=== PATIENT | female | born 1955 | race Caucasian/White ===

== ENCOUNTER → 2016-12-01 | Outpatient (CLI) | payer MEDICARE, OTHER ==
--- NOTE | 2016-12-01 15:45 | BD ---
EXAMINATION TYPE: MG DEXA axial skeleton. DATE OF EXAM: 12/01/2016 1:28 PM COMPARISON: NONE CLINICAL HISTORY: Z13.820 SCREENING Height: 64.5 Weight: 193 FRAX RISK QUESTIONS: Alcohol (3 or more units per day): NO Family History (Parent hip fracture): NO Glucocorticoids (More than 3mos): YES (Ex: prednisone, prednisolone, methylprednisolone, dexamethasone, and hydrocortisone). History of Fracture in Adulthood: NO Secondary Osteoporosis: NO 1. Type 1 Diabetes: NO 2. Hyperthyroidism: NO 3. Menopause before 45: NO 4. Malnutrition: NO 5. Chronic liver disease: NO Rheumatoid Arthritis: NO Current Tobacco Use: YES RISK FACTORS HISTORY OF: History of Wrist Fracture: RT FOREARM When: AGE 7 Family History of Osteoporosis: NO Smoke tobacco: YES, 1 PAC DAILY Drink Alcohol: NO Active: NOT REALLY Diet low in dairy products/other sources of calcium: NO Postmenopausal woman: YES AT AGE 53 Lost more than 2 inches in height since high school: YES Adrenal Insufficiency: NO MEDICATIONS: Prednisone or other steroids: ASTHMA INHALERS DAILY How Long: FOR YRS Additional Medications: ZOLOFT, BP MEDS Additional History: ASTHMA, HYPERTENSION, NECK SURGERY EXAM MEASUREMENTS: Bone mineral densitometry was performed using the Super System. Bone mineral density as measured about the Lumbar spine is: ----- L1-L4(G/cm2): 1.269 T Score Values are as follows: ----- L1: -0.1 ----- L2: 0.8 ----- L3: 0.6 ----- L4: 1.3 ----- L1-L4: 0.7 Bone mineral density BASELINE STUDY FOR HER Bone mineral density about the R hip (g/cm2): 1.062 Bone mineral density about the L hip (g/cm2): 1.041 T Score values are as follows: -----R Neck: -0.6 -----L Neck: -0.7 -----R Intertrochanter: 0.0 -----L Intertrochanter: 0.3 Bone mineral density FIRST BONE DENSITY TEST.....BASELINE FRAX %'S: 6.1% FOR A MAJOR OSTEOPOROTIC FX AND 0.4% FOR A HIP FX: PROBABILITY OF FX IN 10 YRS TI ME IMPRESSION: Normal (Values between +1 and -1 indicate normal bone mass FOR BOTH STUDIES) NOTE: T-SCORE=SD OF THE YOUNG ADULT MEAN.
--- NOTE | 2016-12-03 08:42 | MM ---
Reason for exam: screening (asymptomatic). Last mammogram was performed 1 year ago. History: Patient is postmenopausal. Family history of premenopausal breast cancer in aunt at age 47 and premenopausal breast cancer in cousin at age 32. Benign excisional biopsy of the left breast, 2009. Physical Findings: A clinical breast exam by your physician is recommended on an annual basis and results should be correlated with mammographic findings. MG Screening Mammo w CAD Bilateral CC and MLO view(s) were taken. Prior study comparison: November 26, 2015, bilateral MG screening mammo w CAD. May 05, 2014, bilateral MG screening mammo w CAD. There are scattered fibroglandular densities. Some subtle asymmetry inferior margin on the left breast may correspond to the site of patients reported infection. The asymmetry is new. A 6 month follow up recommended. ASSESSMENT: Probably benign, BI-RAD 3 RECOMMENDATION: Follow-up diagnostic mammogram of the left breast in 6 months.
== END | disposition home or self-care (01) ==
LOC: LABWHC1 12:49
PROVIDERS: ATTEND Family Medicine
DX: Z12.31 Encounter for screening mammogram for malignant neoplasm of breast (principal); Z13.820 Encounter for screening for osteoporosis
CPT/HCPCS: 77080; G0202

== ENCOUNTER 2017-02-16 10:28 | Inpatient (IN) | payer MEDICARE, OTHER ==
[2017-02-16] MEDS ORDERED: methylPREDNISolone SOD SUCCI 125 MG/2 ML VIAL IV STA (10:29)
[2017-02-16] MEDS ORDERED: SODIUM CHLORIDE 0.9% 1,000 ML IV STA ×2 (10:29→12:48)
[2017-02-16] MEDS ORDERED: ALBUTEROL NEBULIZED 2.5 MG/3 ML INHALATION STA (10:29)
[2017-02-16] MEDS ORDERED: IPRATROPIUM 0.5 MG/2.5 ML NEBU INHALATION STA (10:29)
--- NOTE | 2017-02-16 10:31 | ED ---
General Adult HPI - General Stated complaint: SOB Time Seen by Provider: 02/16/17 10:29 Source: RN notes reviewed, old records reviewed - History of Present Illness Initial comments: This is a 61-year-old female the ER for evaluation. Patient presented today for evaluation of cough congestion shortness of breath. Patient does from asthma, having worsening asthma exacerbation as of today. Patient shows no fever. Does have increased cough or congestion. Also complaining of chest pain neck pain and neck pain and arm - Related Data Home Medications Medication Instructions Recorded Confirmed Cyclobenzaprine [Flexeril] 10 mg PO TID PRN 11/16/14 02/16/17 HYDROcodone/APAP 5-325MG [[place] 5] 1 tab PO Q6H PRN 11/16/14 02/16/17 LORazepam [Ativan] 0.5 mg PO BID PRN 11/16/14 02/16/17 Omeprazole [PriLOSEC] 20 mg PO DAILY 11/16/14 02/16/17 Aspirin 325 mg PO DAILY 02/16/17 02/16/17 Atorvastatin Calcium [Lipitor] 20 mg PO HS 02/16/17 02/16/17 Sulfamethox-Tmp 800-160Mg [Bactrim 1 tab PO Q12HR 02/16/17 02/16/17 DS 800-160 mg] Allergies Allergy/AdvReac Type Severity Reaction Status Date / Time codeine Allergy Rapid Verified 02/16/17 11:49 Heart Rate meperidine HCl [From Demerol] Allergy Rapid Verified 02/16/17 11:49 Heart Rate morphine Allergy Rapid Verified 02/16/17 11:49 Heart Rate Review of Systems ROS Statement: Those systems with pertinent positive or pertinent negative responses have been documented in the HPI. ROS Other: All systems not noted in ROS Statement are negative. Past Medical History Past Medical History: Asthma, GERD/Reflux, Skin Disorder Additional Past Medical History / Comment(s): psoriasis History of Any Multi-Drug Resistant Organisms: None Reported Past Surgical History: Appendectomy, Tonsillectomy, Tubal Ligation Additional Past Surgical History / Comment(s): cervical fusion with plate and screws Past Anesthesia/Blood Transfusion Reactions: Motion Sickness Smoking Status: Current every day smoker Past Alcohol Use History: None Reported Past Drug Use History: None Reported General Exam General appearance: alert, in no apparent distress Head exam: Present: atraumatic, normocephalic, normal inspection Eye exam: Present: normal appearance, PERRL, EOMI. Absent: scleral icterus, conjunctival injection, periorbital swelling ENT exam: Present: normal exam, mucous membranes moist Neck exam: Present: normal inspection. Absent: tenderness, meningismus, lymphadenopathy Respiratory exam: Present: normal lung sounds bilaterally, wheezes, accessory muscle use, decreased breath sounds, prolonged expiratory. Absent: respiratory distress, rales, rhonchi, stridor Cardiovascular Exam: Present: regular rate, normal rhythm, normal heart sounds. Absent: systolic murmur, diastolic murmur, rubs, gallop, clicks GI/Abdominal exam: Present: soft, normal bowel sounds. Absent: distended, tenderness, guarding, rebound, rigid Extremities exam: Present: normal inspection, full ROM, normal capillary refill. Absent: tenderness, pedal edema, joint swelling, calf tenderness Back exam: Present: normal inspection Neurological exam: Present: alert, oriented X3, CN II-XII intact Psychiatric exam: Present: normal affect, normal mood Skin exam: Present: warm, dry, intact, normal color. Absent: rash Course Vital Signs 02/16/17 02/16/17 02/16/17 10:30 10:45 11:00 Temperature 101.5 F H Pulse Rate 137 H 133 H 140 H Respiratory 22 22 Rate Blood Pressure 113/58 O2 Sat by Pulse 100 100 Oximetry 02/16/17 02/16/17 11:25 11:39 Temperature Pulse Rate 132 H 128 H Respiratory Rate Blood Pressure O2 Sat by Pulse Oximetry - Reevaluation(s) Reevaluation #1: 02/16/17 12:49 Patient has minimal improvement with breathing treatment and synthetic therapy, patient remained short of breath EKG Findings - EKG Comments: EKG Findings:: EKG shows sinus tachycardia at 139, MN 120, QRS 80, QTC 535 Medical Decision Making - Medical Decision Making 61 female the ER for evaluation of severe shortness of breath cough and congestion, positive COPD exacerbation with fever. Patient will be treated for possible pneumonia although no pneumonia is seen on x-ray at this time. Patient will be admitted for IV antibiotics and breathing treatments on the clock - Lab Data Result diagrams: 02/16/17 10:45 02/16/17 10:45 Lab Results 02/16/17 02/16/17 02/16/17 Range/Units 10:45 10:45 10:45 WBC 8.2 (3.8-10.6) k/uL RBC 5.59 H (3.80-5.40) m/uL Hgb 15.9 (11.4-16.0) gm/dL Hct 49.5 H (34.0-46.0) % MCV 88.7 (80.0-100.0) fL MCH 28.5 (25.0-35.0) pg MCHC 32.1 (31.0-37.0) g/dL RDW 13.8 (11.5-15.5) % Plt Count 244 (150-450) k/uL Neutrophils % 91 % Lymphocytes % 7 % Monocytes % 1 % Eosinophils % 1 % Basophils % 0 % Neutrophils # 7.5 (1.3-7.7) k/uL Lymphocytes # 0.6 L (1.0-4.8) k/uL Monocytes # 0.1 (0-1.0) k/uL Eosinophils # 0.1 (0-0.7) k/uL Basophils # 0.0 (0-0.2) k/uL PT (9.0-12.0) sec INR (<1.1) APTT (22.0-30.0) sec Sodium 140 (137-145) mmol/L Potassium 3.4 L (3.5-5.1) mmol/L Chloride 106 (98-107) mmol/L Carbon Dioxide 20 L (22-30) mmol/L Anion Gap 14 mmol/L BUN 9 (7-17) mg/dL Creatinine 0.93 (0.52-1.04) mg/dL Est GFR (MDRD) Af Amer >60 (>60 ml/min/1.73 sqM) Est GFR (MDRD) Non-Af >60 (>60 ml/min/1.73 sqM) Glucose 107 H (74-99) mg/dL Calcium 9.4 (8.4-10.2) mg/dL Total Bilirubin 0.6 (0.2-1.3) mg/dL AST 34 (14-36) U/L ALT 33 (9-52) U/L Alkaline Phosphatase 97 (38-126) U/L Total Creatine Kinase 62 (30-135) U/L CK-MB (CK-2) 1.2 (0.0-2.4) ng/mL CK-MB (CK-2) Rel Index 1.9 Troponin I <0.012 (0.000-0.034) ng/mL NT-Pro-B Natriuret Pep pg/mL Total Protein 7.5 (6.3-8.2) g/dL Albumin 4.0 (3.5-5.0) g/dL 02/16/17 02/16/17 Range/Units 10:45 10:45 WBC (3.8-10.6) k/uL RBC (3.80-5.40) m/uL Hgb (11.4-16.0) gm/dL Hct (34.0-46.0) % MCV (80.0-100.0) fL MCH (25.0-35.0) pg MCHC (31.0-37.0) g/dL RDW (11.5-15.5) % Plt Count (150-450) k/uL Neutrophils % % Lymphocytes % % Monocytes % % Eosinophils % % Basophils % % Neutrophils # (1.3-7.7) k/uL Lymphocytes # (1.0-4.8) k/uL Monocytes # (0-1.0) k/uL Eosinophils # (0-0.7) k/uL Basophils # (0-0.2) k/uL PT 10.9 (9.0-12.0) sec INR 1.1 (<1.1) APTT 24.3 (22.0-30.0) sec Sodium (137-145) mmol/L Potassium (3.5-5.1) mmol/L Chloride (98-107) mmol/L Carbon Dioxide (22-30) mmol/L Anion Gap mmol/L BUN (7-17) mg/dL Creatinine (0.52-1.04) mg/dL Est GFR (MDRD) Af Amer (>60 ml/min/1.73 sqM) Est GFR (MDRD) Non-Af (>60 ml/min/1.73 sqM) Glucose (74-99) mg/dL Calcium (8.4-10.2) mg/dL Total Bilirubin (0.2-1.3) mg/dL AST (14-36) U/L ALT (9-52) U/L Alkaline Phosphatase (38-126) U/L Total Creatine Kinase (30-135) U/L CK-MB (CK-2) (0.0-2.4) ng/mL CK-MB (CK-2) Rel Index Troponin I (0.000-0.034) ng/mL NT-Pro-B Natriuret Pep 171 pg/mL Total Protein (6.3-8.2) g/dL Albumin (3.5-5.0) g/dL - Radiology Data Radiology results: report reviewed (Chest x-ray is negative for acute disease), image reviewed Critical Care Time Critical Care Time: Yes Total Critical Care Time: 31 Disposition Clinical Impression: Acute exacerbation of chronic obstructive airways disease, Community acquired pneumonia, Hypoxia, Sepsis Disposition: ADMITTED IP TO THIS HOSP Condition: Fair Referrals: Zacarias Carmen MD [Primary Care Provider] - 1-2 days
[2017-02-16] MEDS ORDERED: HYDROmorphone 1 MG/ML 1 ML SYRINGE IVP STA (10:51)
[2017-02-16] MEDS ORDERED: IBUPROFEN 800 MG TAB PO STA (10:51)
[2017-02-16] MEDS ORDERED: ACETAMINOPHEN TAB 500 MG TAB PO STA (10:51)
[2017-02-16] MEDS ORDERED: AZITHROMYCIN 500 MG in SODIUM CHLORIDE 0.9% 250 ML IVPB STA (10:53)
--- NOTE | 2017-02-16 11:01 | XR ---
EXAMINATION TYPE: XR chest 1V portable DATE OF EXAM: 02/16/2017 10:58 AM Comparison: None Clinical History: 61-year-old female SOB Findings: The cardiomediastinal silhouette, aorta, and pulmonary vasculature are within normal limits. Hazy de nsity at the left base suspected to relate to overlying soft tissue density. Note definite consolidat ion or pleural effusion. Impression: Underpenetration of the left base limits the evaluation. Hazy density here is suspected to relate to overlying soft tissue. No definite acute process.
[2017-02-16 11:03] LABS: Basophils % (A) 0 %; CH 28.6; CHCM 32.4; Eosinophils # (A) 0.1 k/uL (0-0.7); Eosinophils % (A) 1 %; HCT 49.5 % (34.0-46.0); HDW 2.57; HGB 15.9 gm/dL (11.4-16.0); Luc # (Auto) 0.03; Luc % (Auto) 0; Lymphocytes # (A) 0.6 k/uL (1.0-4.8); Lymphocytes % (A) 7 %; MCH 28.5 pg (25.0-35.0); MCHC 32.1 g/dL (31.0-37.0); MCV 88.7 fL (80.0-100.0); Mean Platelet Volume 7.2; Monocytes # (A) 0.1 k/uL (0-1.0); Monocytes % (A) 1 %; Neutrophils # (A) 7.5 k/uL (1.3-7.7); Neutrophils % (A) 91 %; RBC 5.59 m/uL (3.80-5.40); RDW 13.8 % (11.5-15.5); WBC 8.2 k/uL (3.8-10.6); WBC (Perox) 7.92
[2017-02-16 11:10] LABS: Creatine Kinase 62 U/L (30-135)
[2017-02-16 11:11] LABS: INR 1.1 (<1.1); Partial Thromboplastin Time 24.3 sec (22.0-30.0); Prothrombin Time 10.9 sec (9.0-12.0)
[2017-02-16 11:12] LABS: ALT 33 U/L (9-52); AST 34 U/L (14-36); Alkaline Phosphatase 97 U/L (38-126); Anion Gap 14 mmol/L; Blood Urea Nitrogen 9 mg/dL (7-17); Calcium 9.4 mg/dL (8.4-10.2); Carbon Dioxide 20 mmol/L (22-30); Chloride 106 mmol/L (98-107); Glucose 107 mg/dL (74-99); Non-African American GFR(MDRD) >60 (>60 ml/min/1.73 sqM); Potassium 3.4 mmol/L (3.5-5.1); Sodium 140 mmol/L (137-145); Total Bilirubin 0.6 mg/dL (0.2-1.3); Total Protein 7.5 g/dL (6.3-8.2)
[2017-02-16] MEDS: SODIUM CHLORIDE 0.9% 1,000 ML IV STA ×2 (11:19→17:26)
[2017-02-16 11:23] LABS: Creatine Kinase MB 1.2 ng/mL (0.0-2.4); Troponin I <0.012 ng/mL (0.000-0.034)
[2017-02-16] MEDS ORDERED: POTASSIUM BICARB-CITRIC ACID 25 MEQ TABLET.EFF PO STA (12:39)
[2017-02-16] MEDS ORDERED: PNEUMONIA PROTOCOL UTILIZED 1 EACH MISC PO PRN (12:46)
[2017-02-16] MEDS ORDERED: SODIUM CHLORIDE 0.9% 1,000 ML IV ONE ×2 (14:05→14:07)
[2017-02-16] MEDS: IPRATROPIUM-ALBUTEROL 3 ML NEB INHALATION SCH ×2 (15:00→19:42)
[2017-02-16] MEDS ORDERED: LORazepam 0.5 MG TAB PO PRN (15:56)
[2017-02-16] MEDS: PANTOPRAZOLE 40 MG TABLET PO SCH ×2 (17:27→17:28)
[2017-02-16] MEDS: SODIUM CHLORIDE 0.9% 1,000 ML IV SCH ×2 (17:27→21:05)
[2017-02-16] MEDS: CYCLOBENZAPRINE 10 MG TAB PO SCH ×2 (17:27→21:05)
[2017-02-16] MEDS: HYDROcodone/APAP 5-325MG 1 EACH TAB PO PRN (17:30)
[2017-02-16] MEDS: SYMBICORT 160-4.5 MCG INHALER INHALATION SCH (19:42)
[2017-02-16] MEDS: NICOTINE 14MG/24HR PATCH TRANSDERM SCH (21:04)
[2017-02-16] MEDS: methylPREDNISolone SOD SUCCI 125 MG/2 ML VIAL IV SCH ×2 (21:04→23:13)
[2017-02-16] MEDS: ATORVASTATIN 20 MG TAB PO SCH (21:05)
[2017-02-16 22:04] LABS: Appearance,Urine Clear (Clear); Bilirubin,Urine Negative (Negative); Glucose,Urine (UA) 4+ (Negative); Ketones,Urine Negative (Negative); Leukocyte Esterase,Urine Negative (Negative); Nitrite,Urine Negative (Negative); Protein,Urine Negative (Negative); Specific Gravity,Urine 1.004 (1.001-1.035); UA Billing (MACRO vs. MICRO) CHEM; Urobilinogen,Urine <2.0 mg/dL (<2.0)
[2017-02-17] MEDS: NITROGLYCERIN SL TABS 0.4 MG TAB SUBLINGUAL PRN ×2 (01:13→01:20)
[2017-02-17] MEDS: MORPHINE SULFATE 2 MG/ML SYRINGE IVP PRN ×2 (01:28→06:30)
[2017-02-17 06:13] LABS: Glucose,Whole Blood 151 mg/dL (75-99)
[2017-02-17] MEDS: SODIUM CHLORIDE 0.9% 1,000 ML IV SCH ×2 (06:34→17:11)
[2017-02-17] MEDS: methylPREDNISolone SOD SUCCI 125 MG/2 ML VIAL IV SCH ×4 (06:35→23:29)
[2017-02-17] MEDS: INSULIN LISPRO (humaLOG) 300 UNIT/3 ML VIAL SQ SCH ×3 (06:35→17:07)
[2017-02-17] MEDS: PANTOPRAZOLE 40 MG TABLET PO SCH (06:37)
[2017-02-17 07:02] LABS: Anion Gap 9 mmol/L; Blood Urea Nitrogen 11 mg/dL (7-17); Calcium 9.2 mg/dL (8.4-10.2); Carbon Dioxide 21 mmol/L (22-30); Chloride 111 mmol/L (98-107); Glucose 145 mg/dL (74-99); Non-African American GFR(MDRD) >60 (>60 ml/min/1.73 sqM); Potassium 4.5 mmol/L (3.5-5.1); Sodium 141 mmol/L (137-145)
[2017-02-17] MEDS ORDERED: INSULIN LISPRO (humaLOG) 300 UNIT/3 ML VIAL SQ SCH (07:30)
[2017-02-17 07:46] LABS: Basophils % (A) 0 %; CH 28.5; Eosinophils % (A) 0 %; HCT 38.6 % (34.0-46.0); HDW 2.68; Luc # (Auto) 0.04; Luc % (Auto) 0; Lymphocytes # (A) 0.7 k/uL (1.0-4.8); Lymphocytes % (A) 4 %; MCH 28.6 pg (25.0-35.0); MCHC 32.9 g/dL (31.0-37.0); MCV 86.9 fL (80.0-100.0); Mean Platelet Volume 7.8; Monocytes # (A) 0.3 k/uL (0-1.0); Monocytes % (A) 2 %; Neutrophils # (A) 15.6 k/uL (1.3-7.7); Neutrophils % (A) 93 %; RBC 4.44 m/uL (3.80-5.40); RDW 13.5 % (11.5-15.5); WBC 16.7 k/uL (3.8-10.6)
[2017-02-17 07:48] LABS: HGB 12.7 gm/dL (11.4-16.0)
[2017-02-17] MEDS: SYMBICORT 160-4.5 MCG INHALER INHALATION SCH ×2 (08:13→19:55)
[2017-02-17] MEDS: IPRATROPIUM-ALBUTEROL 3 ML NEB INHALATION SCH ×4 (08:13→19:55)
[2017-02-17 08:44] LABS: Hemoglobin A1C 6.4 % (4.2-6.1)
[2017-02-17] MEDS: AZITHROMYCIN 500 MG in SODIUM CHLORIDE 0.9% 250 ML IVPB SCH (09:05)
[2017-02-17] MEDS: ASPIRIN 325 MG TAB PO SCH (09:05)
[2017-02-17] MEDS: ENOXAPARIN 40 MG/0.4 ML SYRINGE SQ SCH (09:06)
[2017-02-17] MEDS: CYCLOBENZAPRINE 10 MG TAB PO SCH ×3 (09:06→21:18)
--- NOTE | 2017-02-17 09:17 | HP ---
DATE OF ADMISSION: DATE OF SERVICE: 02/16/2017 The chief complaints are shortness of breath, cough and sputum. HISTORY OF PRESENT ILLNESS: This 61-year-old woman with a past medical history of asthma, GERD, hyperlipidemia, history of pneumonia, history of skin disorder, history of DJD, cervical fusion, being followed by Dr. Zacarias Carmen in the outpatient setting is having increased shortness of breath since today. The patient had increase in cough and sputum. Patient had fevers and the patient came to [facility] and admitted for further evaluation and treatment. Temperature was elevated up to 100.3 and plasma lactic was 4.3. Pneumonia. Patient was admitted for further evaluation and treatment. There is no history of any headache, loss of consciousness or seizures. No history of chest pain, palpitations, hematochezia or melena at this time. PAST MEDICAL HISTORY: History of asthma, history of GERD, hyperlipidemia, history of pneumonia, history of back pain, DJD, history of tonsillectomy. Medications prior to admission include: 1. Bactrim DS one p.o. b.i.d. 2. Ativan 0.5 mg b.i.d. p.r.n. 3. [place] 5 mg q.6 p.r.n. 4. Flexeril 10 mg t.i.d. p.r.n. 5. Aspirin 325 mg p.o. daily. 6. Prilosec 20 mg daily. 7. Lipitor 10 mg q.h.s. Allergies are CODEINE, DEMEROL, MORPHINE. FAMILY HISTORY: History of cancer in the family. SOCIAL HISTORY: History of smoking on a daily basis. REVIEW OF SYSTEMS: ENT: No diminishing hearing or diminished vision. CARDIOVASCULAR: As mentioned earlier. RESPIRATORY: As mentioned earlier. GI: No nausea. : No dysuria. NERVOUS SYSTEM: No numbness or weakness. ALLERGY/IMMUNOLOGY: neg MUSCULOSKELETAL: As mentioned earlier. HEMATOLOGY/ONCOLOGY: No history of anemia. ENDOCRINE: No history of diabetes mellitus or hypothyroidism. CONSTITUTIONAL: As mentioned earlier. DERMATOLOGY: Negative. RHEUMATOLOGY: Negative. PSYCHIATRY: As mentioned earlier. PHYSICAL EXAMINATION: The patient is alert and oriented x3. Pulse 133. Blood pressure 113/58, respirations 22, temperature 101.5, pulse ox 100% on 2 L. HEENT: Conjunctivae normal. NECK: No jugular venous distention. CARDIOVASCULAR: S1 and S2, muffled. RESPIRATORY: Breath sounds diminished at the bases. Bilateral scattered rhonchi and crackles. Breathing efforts are increased. ABDOMEN: Soft, nontender. No mass palpable. LEGS: No edema, no swelling. NERVOUS SYSTEM: Higher function as mentioned earlier. Moves all 4 limbs. No focal deficits. LYMPHATICS: No lymphadenopathy of neck, axillae or groin. SKIN: No ulcers, rashes or bleeding. LABS: WBC 8.2, hemoglobin is 15.9. Potassium 3.4. Plasma lactic 4.3. ASSESSMENT: 1. Acute bronchial asthma/chronic obstructive pulmonary disease, acute exacerbation, with acute bronchopneumonia with possible sepsis, present on admission. 2. Hypokalemia. 3. Increased lactic acidosis, possibly secondary to sepsis. 4. History of gastroesophageal reflux disease. 5. Hyperlipidemia. 6. History of pneumonia. 7. History of back pain. 8. History of psoriasis. 9. History of degenerative joint disease. 10. History of cervical fusion. 11. History of nicotine dependence, continued, ongoing. RECOMMENDATIONS AND DISCUSSION: This 61-year-old woman presented with multiple complex medical problems, will monitor the patient closely. Continue the current medications. Continue symptomatic treatment. Will initiate broad-spectrum IV antibiotics. Rocephin and Zithromax will be used and bronchodilators. Also obtain a pulmonary consultation with Dr. Glover. Other than that, IV steroids. Monitor blood sugars closely. DVT prophylaxis. Further recommendations to follow. A copy of dictation forwarded to Dr. Zacarias Carmen who is the primary physician. [facility] HOSPITALJosephine
--- NOTE | 2017-02-17 09:54 | XR ---
EXAMINATION TYPE: XR chest 2V DATE OF EXAM: 02/17/2017 7:37 AM COMPARISON: 02/16/2017 INDICATION: Pneumonia cough short of breath TECHNIQUE: 2 view chest FINDINGS: The heart size is normal. The pulmonary vasculature is normal. The lungs are clear. IMPRESSION: 1. No acute pulmonary process.
--- NOTE | 2017-02-17 11:14 | P.CRDCN ---
<[place] E - Last Filed: 02/17/17 10:58> History of Present Illness Consult date: 02/17/17 Requesting physician: Romain Bowman Reason for Consult (text): Tachycardia Chief complaint: Shortness of breath and heart racing History of present illness: This is a 61-year-old female with history of hypertension, hyperlipidemia, asthma, GERD, nicotine dependence, she states that she smokes one pack of cigarettes per day. She presents to the hospital with symptoms of shortness of breath with associated heart racing. According to the patient she had been getting mildly more progressively short of breath over the past couple of days, yesterday she states she could hardly breathe at all and felt her heart racing. For this reason she called EMS. Blood pressure on EMS arrival 146/98 with a heart rate of 140. Patient denies any fever or chills at home, denies any cough. However on arrival here her temperature was 101.5, heart rate in the 130s, blood pressure 114/58, 100% on 2 L of oxygen. Initial white blood cell count was 8.2, 16.7 this morning. Initial potassium 3.4, 4.5 this morning. BUN and creatinine are normal. Troponins negative 3, BNP level 171. At the time of my examination this morning, patient still complains of mild shortness of breath, heart rate currently in the 120 range. Sinus tachycardia Past Medical History Past Medical History: Asthma, GERD/Reflux, Hyperlipidemia, Pneumonia, Skin Disorder Additional Past Medical History / Comment(s): DDD, low back pain, cervical pain , psoriasis. History of Any Multi-Drug Resistant Organisms: None Reported Past Surgical History: Appendectomy, Orthopedic Surgery, Tonsillectomy, Tubal Ligation Additional Past Surgical History / Comment(s): cervical fusion with plate and screws, EGD, colonoscopies. Past Anesthesia/Blood Transfusion Reactions: No Reported Reaction, Motion Sickness Past Psychological History: No Psychological Hx Reported Additional Psychological History / Comment(s): Pt lives with her son. She is independent. Smoking Status: Current every day smoker Past Alcohol Use History: None Reported Additional Past Alcohol Use History / Comment(s): Pt started smoking in 1977. She is a ppd smoker. Past Drug Use History: None Reported - Past Family History Father Family Medical History: Cancer Additional Family Medical History / Comment(s): Father of colon cancer at the age of 57yrs. Mother Family Medical History: Congestive Heart Failure (CHF), Neurologic Disorder Additional Family Medical History / Comment(s): Mother of CHF at the age of 63yrs. She had [place]'s dx. Medications and Allergies Home Medications Medication Instructions Recorded Confirmed Type Cyclobenzaprine [Flexeril] 10 mg PO TID PRN 11/16/14 02/16/17 History HYDROcodone/APAP 5-325MG [[place] 5] 1 tab PO Q6H PRN 11/16/14 02/16/17 History LORazepam [Ativan] 0.5 mg PO BID PRN 11/16/14 02/16/17 History Omeprazole [PriLOSEC] 20 mg PO DAILY 11/16/14 02/16/17 History Aspirin 325 mg PO DAILY 02/16/17 02/16/17 History Atorvastatin Calcium [Lipitor] 20 mg PO HS 02/16/17 02/16/17 History Sulfamethox-Tmp 800-160Mg [Bactrim 1 tab PO Q12HR 02/16/17 02/16/17 History DS 800-160 mg] Allergies Allergy/AdvReac Type Severity Reaction Status Date / Time codeine Allergy Rapid Verified 02/16/17 11:49 Heart Rate meperidine HCl [From Demerol] Allergy Rapid Verified 02/16/17 11:49 Heart Rate morphine Allergy Rapid Verified 02/16/17 11:49 Heart Rate Physical Exam Vitals: Vital Signs Temp Pulse Pulse Resp BP BP Pulse Ox 02/17/17 08:28 100 02/17/17 08:17 108 H 96 02/17/17 04:00 105 H 14 02/17/17 02:58 98.0 F 105 H 14 106/64 96 02/17/17 01:20 120/60 02/17/17 01:10 122/65 02/17/17 00:00 117 H 16 02/16/17 23:14 99.2 F 117 H 16 108/47 98 02/16/17 20:00 98.3 F 109 H 16 125/61 96 02/16/17 19:59 116 H 02/16/17 19:42 108 H 02/16/17 17:00 112 H 02/16/17 16:29 98.3 F 110 H 19 120/69 100 02/16/17 16:13 98.2 F 111 H 18 110/53 98 02/16/17 15:16 131 H 02/16/17 15:03 103 H 02/16/17 14:00 104 H 18 97 02/16/17 13:35 114 H 18 109/57 100 02/16/17 11:39 128 H 02/16/17 11:25 132 H 02/16/17 11:00 140 H Intake and Output 02/16/17 02/17/17 02/17/17 22:59 06:59 14:59 Intake Total 220 Output Total 1050 Balance 220 -1050 Intake: Intake, IV Titration 100 Amount Sodium Chloride 0.9% 1, 100 000 ml @ 100 mls/hr IV . Q10H STA Rx#:[id number] Oral 120 Output: Urine 1050 Other: # Voids 1 Weight 86.9 kg PHYSICAL EXAMINATION: HEENT: Head is atraumatic, normocephalic. Pupils equal, round. Neck is supple. There is no elevated jugular venous pressure. HEART EXAMINATION: Heart S1, S2 normal. No murmur or gallop heard. CHEST EXAMINATION: Reveal decreased air exchange with scattered coarse wheezing throughout. ABDOMEN: Soft, nontender. Bowel sounds are heard. No organomegaly noted. EXTREMITIES: 2+ peripheral pulses with no evidence of peripheral edema and no calf tenderness noted. NEUROLOGIC patient is awake, alert and oriented -3. . Results 02/17/17 06:14 02/17/17 06:14 Cardiac Enzymes 02/16/17 02/16/17 02/17/17 Range/Units 10:45 10:45 00:00 AST 34 (14-36) U/L CK-MB (CK-2) 1.2 (0.0-2.4) ng/mL Troponin I <0.012 <0.012 (0.000-0.034) ng/mL 02/17/17 Range/Units 06:14 AST (14-36) U/L CK-MB (CK-2) (0.0-2.4) ng/mL Troponin I <0.012 (0.000-0.034) ng/mL Coagulation 02/16/17 Range/Units 10:45 PT 10.9 (9.0-12.0) sec APTT 24.3 (22.0-30.0) sec CBC 02/16/17 02/17/17 Range/Units 10:45 06:14 WBC 8.2 16.7 H (3.8-10.6) k/uL RBC 5.59 H 4.44 (3.80-5.40) m/uL Hgb 15.9 12.7 D (11.4-16.0) gm/dL Hct 49.5 H 38.6 (34.0-46.0) % Plt Count 244 220 (150-450) k/uL Comprehensive Metabolic Panel 02/16/17 02/17/17 Range/Units 10:45 06:14 Sodium 140 141 (137-145) mmol/L Potassium 3.4 L 4.5 (3.5-5.1) mmol/L Chloride 106 111 H (98-107) mmol/L Carbon Dioxide 20 L 21 L (22-30) mmol/L BUN 9 11 (7-17) mg/dL Creatinine 0.93 0.65 (0.52-1.04) mg/dL Glucose 107 H 145 H (74-99) mg/dL Calcium 9.4 9.2 (8.4-10.2) mg/dL AST 34 (14-36) U/L ALT 33 (9-52) U/L Alkaline Phosphatase 97 (38-126) U/L Total Protein 7.5 (6.3-8.2) g/dL Albumin 4.0 (3.5-5.0) g/dL Current Medications Generic Name Dose Route Start Last Admin Trade Name Freq PRN Reason Stop Dose Admin Hydrocodone Bitart/Acetaminophen 1 each 02/16/17 15:57 02/16/17 17:30 [place] 5-325 PO 1 each Q6HR PRN Administration MODERATE Pain Albuterol/Ipratropium 3 ml 02/16/17 16:00 02/17/17 08:13 Duoneb 0.5 Mg-3 Mg/3 Ml Soln INHALATION 3 ml RT-QID LONI Administration Aspirin 325 mg 02/17/17 09:00 02/17/17 09:05 Aspirin PO 325 mg DAILY LONI Administration Atorvastatin Calcium 20 mg 02/16/17 21:00 02/16/17 21:05 Lipitor PO 20 mg HS LONI Administration Budesonide/Formoterol Fumarate 2 puff 02/16/17 20:00 02/17/17 08:13 Symbicort 160-4.5 Mcg Inhaler INHALATION 2 puff RT-BID LONI Administration Cyclobenzaprine HCl 10 mg 02/16/17 16:00 02/17/17 09:06 Flexeril PO 10 mg TID LONI Administration Enoxaparin Sodium 40 mg 02/17/17 09:00 02/17/17 09:06 Lovenox SQ 40 mg DAILY LONI Administration Azithromycin 500 mg/ Sodium 250 mls @ 125 mls/hr 02/17/17 09:00 02/17/17 09: 05 Chloride IVPB 125 mls/hr DAILY LONI Administration Sodium Chloride 1,000 mls @ 100 mls/hr 02/16/17 13:00 02/17/17 06:34 Saline 0.9% IV 100 mls/hr .Q10H LONI Administration Ceftriaxone Sodium 1,000 mg/ 50 mls @ 100 mls/hr 02/17/17 12:00 Sodium Chloride IVPB 02/20/17 12:01 Q24H LONI Insulin Human Lispro 0 unit 02/17/17 07:30 02/17/17 06:35 Humalog SQ 2 unit ACHS LONI Administration Protocol Lorazepam 0.5 mg 02/16/17 15:56 Ativan PO BID PRN Agitation or Acute Anxiety Methylprednisolone Sodium Succinate 60 mg 02/16/17 18:15 02/17/17 06:35 Solu-Medrol IV 60 mg Q6HR LONI Administration Miscellaneous Information 1 each 02/16/17 12:46 Pneumonia Protocol Utilized PO ONCE PRN Per Protocol Morphine Sulfate 2 mg 02/17/17 00:58 02/17/17 06:30 Morphine Sulfate (Inj) IVP 2 mg Q3H PRN Administration SEVERE Pain/Discomfort Nicotine 1 patch 02/16/17 20:00 02/16/17 21:04 Habitrol 14mg/24hr Patch TRANSDERM 1 patch HS LONI Administration Nitroglycerin 0.4 mg 02/17/17 00:52 02/17/17 01:20 Nitrostat SUBLINGUAL 0.4 mg Q5M PRN Administration Chest Pain Pantoprazole Sodium 40 mg 02/17/17 07:30 02/17/17 06:37 Protonix PO 40 mg AC-BRKFST LONI Administration Intake and Output 05/15/17 05/16/17 05/16/17 22:59 06:59 14:59 Intake Total 220 Output Total 1050 Balance 220 -1050 Intake: Intake, IV Titration 100 Amount Sodium Chloride 0.9% 1, 100 000 ml @ 100 mls/hr IV . Q10H STA Rx#:[id number] Oral 120 Output: Urine 1050 Other: # Voids 1 Weight 86.9 kg 02/17/17 06:14 02/17/17 06:14 EKG Interpretations (text) EKG shows a sinus tachycardia with no acute changes. Assessment and Plan Plan: Assessment and plan #1Acute bronchitis,/asthma, possible pneumonia. #2 sinus tachycardia #3 hypertension #4 hyperlipidemia #5 nicotine dependence #6 psoriasis Plan We will obtain a free T4 and a TSH level, echocardiogram with Doppler study has also been requested. Further recommendations to follow. DNP note has been reviewed, I agree with a documented findings and plan of care. Patient was seen and examined. <Vikas López - Last Filed: 02/17/17 11:15> Physical Exam Vitals: Vital Signs Temp Pulse Pulse Resp BP BP Pulse Ox 02/17/17 08:28 100 02/17/17 08:17 108 H 96 02/17/17 04:00 105 H 14 02/17/17 02:58 98.0 F 105 H 14 106/64 96 02/17/17 01:20 120/60 02/17/17 01:10 122/65 02/17/17 00:00 117 H 16 02/16/17 23:14 99.2 F 117 H 16 108/47 98 02/16/17 20:00 98.3 F 109 H 16 125/61 96 02/16/17 19:59 116 H 02/16/17 19:42 108 H 02/16/17 17:00 112 H 02/16/17 16:29 98.3 F 110 H 19 120/69 100 02/16/17 16:13 98.2 F 111 H 18 110/53 98 02/16/17 15:16 131 H 02/16/17 15:03 103 H 02/16/17 14:00 104 H 18 97 02/16/17 13:35 114 H 18 109/57 100 02/16/17 11:39 128 H 02/16/17 11:25 132 H Intake and Output 02/16/17 02/17/17 02/17/17 22:59 06:59 14:59 Intake Total 220 Output Total 1050 Balance 220 -1050 Intake: Intake, IV Titration 100 Amount Sodium Chloride 0.9% 1, 100 000 ml @ 100 mls/hr IV . Q10H STA Rx#:[id number] Oral 120 Output: Urine 1050 Other: # Voids 1 Weight 86.9 kg Results 02/17/17 06:14 02/17/17 06:14 Cardiac Enzymes 02/16/17 02/16/17 02/17/17 Range/Units 10:45 10:45 00:00 AST 34 (14-36) U/L CK-MB (CK-2) 1.2 (0.0-2.4) ng/mL Troponin I <0.012 <0.012 (0.000-0.034) ng/mL 02/17/17 Range/Units 06:14 AST (14-36) U/L CK-MB (CK-2) (0.0-2.4) ng/mL Troponin I <0.012 (0.000-0.034) ng/mL CBC 02/17/17 Range/Units 06:14 WBC 16.7 H (3.8-10.6) k/uL RBC 4.44 (3.80-5.40) m/uL Hgb 12.7 D (11.4-16.0) gm/dL Hct 38.6 (34.0-46.0) % Plt Count 220 (150-450) k/uL Comprehensive Metabolic Panel 02/16/17 02/17/17 Range/Units 10:45 06:14 Sodium 140 141 (137-145) mmol/L Potassium 3.4 L 4.5 (3.5-5.1) mmol/L Chloride 106 111 H (98-107) mmol/L Carbon Dioxide 20 L 21 L (22-30) mmol/L BUN 9 11 (7-17) mg/dL Creatinine 0.93 0.65 (0.52-1.04) mg/dL Glucose 107 H 145 H (74-99) mg/dL Calcium 9.4 9.2 (8.4-10.2) mg/dL AST 34 (14-36) U/L ALT 33 (9-52) U/L Alkaline Phosphatase 97 (38-126) U/L Total Protein 7.5 (6.3-8.2) g/dL Albumin 4.0 (3.5-5.0) g/dL Current Medications Generic Name Dose Route Start Last Admin Trade Name Freq PRN Reason Stop Dose Admin Hydrocodone Bitart/Acetaminophen 1 each 02/16/17 15:57 02/16/17 17:30 [place] 5-325 PO 1 each Q6HR PRN Administration MODERATE Pain Albuterol/Ipratropium 3 ml 02/16/17 16:00 02/17/17 11:12 Duoneb 0.5 Mg-3 Mg/3 Ml Soln INHALATION Not Given RT-QID LONI Aspirin 325 mg 02/17/17 09:00 02/17/17 09:05 Aspirin PO 325 mg DAILY LONI Administration Atorvastatin Calcium 20 mg 02/16/17 21:00 02/16/17 21:05 Lipitor PO 20 mg HS LONI Administration Budesonide/Formoterol Fumarate 2 puff 02/16/17 20:00 02/17/17 08:13 Symbicort 160-4.5 Mcg Inhaler INHALATION 2 puff RT-BID LONI Administration Cyclobenzaprine HCl 10 mg 02/16/17 16:00 02/17/17 09:06 Flexeril PO 10 mg TID LONI Administration Enoxaparin Sodium 40 mg 02/17/17 09:00 02/17/17 09:06 Lovenox SQ 40 mg DAILY LONI Administration Azithromycin 500 mg/ Sodium 250 mls @ 125 mls/hr 02/17/17 09:00 02/17/17 09: 05 Chloride IVPB 125 mls/hr DAILY LONI Administration Sodium Chloride 1,000 mls @ 100 mls/hr 02/16/17 13:00 02/17/17 06:34 Saline 0.9% IV 100 mls/hr .Q10H LONI Administration Ceftriaxone Sodium 1,000 mg/ 50 mls @ 100 mls/hr 02/17/17 12:00 Sodium Chloride IVPB 02/20/17 12:01 Q24H LONI Insulin Human Lispro 0 unit 02/17/17 07:30 02/17/17 06:35 Humalog SQ 2 unit ACHS LONI Administration Protocol Lorazepam 0.5 mg 02/16/17 15:56 Ativan PO BID PRN Agitation or Acute Anxiety Methylprednisolone Sodium Succinate 60 mg 02/16/17 18:15 02/17/17 06:35 Solu-Medrol IV 60 mg Q6HR LONI Administration Miscellaneous Information 1 each 02/16/17 12:46 Pneumonia Protocol Utilized PO ONCE PRN Per Protocol Morphine Sulfate 2 mg 02/17/17 00:58 02/17/17 06:30 Morphine Sulfate (Inj) IVP 2 mg Q3H PRN Administration SEVERE Pain/Discomfort Nicotine 1 patch 02/16/17 20:00 02/16/17 21:04 Habitrol 14mg/24hr Patch TRANSDERM 1 patch HS LONI Administration Nitroglycerin 0.4 mg 02/17/17 00:52 02/17/17 01:20 Nitrostat SUBLINGUAL 0.4 mg Q5M PRN Administration Chest Pain Pantoprazole Sodium 40 mg 02/17/17 07:30 02/17/17 06:37 Protonix PO 40 mg AC-BRKFST LONI Administration Intake and Output 02/16/17 02/17/17 02/17/17 22:59 06:59 14:59 Intake Total 220 Output Total 1050 Balance 220 -1050 Intake: Intake, IV Titration 100 Amount Sodium Chloride 0.9% 1, 100 000 ml @ 100 mls/hr IV . Q10H STA Rx#:[id number] Oral 120 Output: Urine 1050 Other: # Voids 1 Weight 86.9 kg 02/17/17 06:14 02/17/17 06:14
--- NOTE | 2017-02-17 11:15 | P.PN ---
Progress Note - Text Patient interviewed and examined Cough fever no expectoration No chest pain Likely bronchitis, febrile, sinus tachycardia, secondary Nonsmoker LV function appears normal on preliminary evaluation of echo TSH level ending Outpatient follow-up with Dr. Castillo Stop smoking
[2017-02-17 11:51] LABS: Glucose,Whole Blood 291 mg/dL (75-99)
[2017-02-17] MEDS ORDERED: INSULIN REGULAR BOLUS (FROM DRIP BAG) IV ONE (12:48)
--- NOTE | 2017-02-17 12:57 | P.CNPUL ---
History of Present Illness Consult date: 02/17/17 Reason for consult: dyspnea History of present illness: 11-year-old female patient, a chronic smoker and smokes approximately 1 pack of cigarettes a day, came into the hospital yesterday because of progressive worsening shortness of breath over a few days duration in addition to increased chest discomfort, numbness in upper 70s bilaterally, nausea, and generalized weakness. She also noted that her heart was racing. The time of the arrival to the hospital, the patient was found to have a slightly elevated blood pressure with a BP of 146/98 with a heart rate of 140. She was placed on oxygen at 2 L/m nasal cannula. She was febrile with temperature of 11.5. Her cardiac enzymes have been negative and the troponin has been negative 3 and the BNP level was 171. The patient was in sinus tachycardia. She was bronchospastic and wheezy. Chest x-ray showed some increased vascular marking without any airspace disease or infiltrates noted. Noted the patient had a component of lactic acidosis the time of admission which ultimately improved lactic acid level is down to 1.7. She was diagnosed having an acute COPD exacerbation as the patient was found to be acutely bronchospastic and wheezy. The patient doesn't utilize any form of respiratory medications at home. The patient does not utilize maintenance inhalers and she occasionally uses Ventolin when necessary. No swelling in lower extremities. No DVT. No pulmonate embolism. She is already feeling better for now. Review of Systems Point review of system was done and all of the positive findings are almost above in history of present illness All systems: negative Constitutional: Denies chills, Denies fever Eyes: denies blurred vision, denies pain Ears, nose, mouth and throat: Denies headache, Denies sore throat Cardiovascular: Reports chest pain, Reports palpitations, Denies shortness of breath Respiratory: Reports cough, Reports dyspnea Gastrointestinal: Reports nausea, Denies abdominal pain, Denies diarrhea, Denies vomiting Genitourinary: Denies dysuria, Denies hematuria Musculoskeletal: Denies myalgias Integumentary: Denies pruritus, Denies rash Neurological: Denies numbness, Denies weakness Psychiatric: Denies anxiety, Denies depression Endocrine: Denies fatigue, Denies weight change Past Medical History Past Medical History: Asthma, GERD/Reflux, Hyperlipidemia, Pneumonia, Skin Disorder Additional Past Medical History / Comment(s): COPD, chronic back pain, chronic neck pain and the patient has undergone previous cervical spine surgery, psoriasis, osteoarthritis, hyperlipidemia History of Any Multi-Drug Resistant Organisms: None Reported Past Surgical History: Appendectomy, Orthopedic Surgery, Tonsillectomy, Tubal Ligation Additional Past Surgical History / Comment(s): cervical fusion with plate and screws, EGD, colonoscopies. Past Anesthesia/Blood Transfusion Reactions: No Reported Reaction, Motion Sickness Past Psychological History: No Psychological Hx Reported Additional Psychological History / Comment(s): Pt lives with her son. She is independent. Smoking Status: Current every day smoker Past Alcohol Use History: None Reported Additional Past Alcohol Use History / Comment(s): Pt started smoking in 1977. She is a ppd smoker. Past Drug Use History: None Reported - Past Family History Father Family Medical History: Cancer Additional Family Medical History / Comment(s): Father of colon cancer at the age of 57yrs. Mother Family Medical History: Congestive Heart Failure (CHF), Neurologic Disorder Additional Family Medical History / Comment(s): Mother of CHF at the age of 63yrs. She had [place]'s dx. Medications and Allergies Home Medications Medication Instructions Recorded Confirmed Type Cyclobenzaprine [Flexeril] 10 mg PO TID PRN 11/16/14 02/16/17 History HYDROcodone/APAP 5-325MG [[place] 5] 1 tab PO Q6H PRN 11/16/14 02/16/17 History LORazepam [Ativan] 0.5 mg PO BID PRN 11/16/14 02/16/17 History Omeprazole [PriLOSEC] 20 mg PO DAILY 11/16/14 02/16/17 History Aspirin 325 mg PO DAILY 02/16/17 02/16/17 History Atorvastatin Calcium [Lipitor] 20 mg PO HS 02/16/17 02/16/17 History Sulfamethox-Tmp 800-160Mg [Bactrim 1 tab PO Q12HR 02/16/17 02/16/17 History DS 800-160 mg] Allergies Allergy/AdvReac Type Severity Reaction Status Date / Time codeine Allergy Rapid Verified 02/16/17 11:49 Heart Rate meperidine HCl [From Demerol] Allergy Rapid Verified 02/16/17 11:49 Heart Rate morphine Allergy Rapid Verified 02/16/17 11:49 Heart Rate Physical Exam Vitals: Vital Signs Temp Pulse Pulse Resp BP BP Pulse Ox 02/17/17 11:53 99.0 F 124 H 18 132/71 96 02/17/17 08:28 100 02/17/17 08:17 108 H 96 02/17/17 08:00 98.0 F 119 H 18 122/69 94 L 02/17/17 04:00 105 H 14 02/17/17 02:58 98.0 F 105 H 14 106/64 96 02/17/17 01:20 120/60 02/17/17 01:10 122/65 02/17/17 00:00 117 H 16 02/16/17 23:14 99.2 F 117 H 16 108/47 98 02/16/17 20:00 98.3 F 109 H 16 125/61 96 02/16/17 19:59 116 H 02/16/17 19:42 108 H 02/16/17 17:00 112 H 02/16/17 16:29 98.3 F 110 H 19 120/69 100 02/16/17 16:13 98.2 F 111 H 18 110/53 98 02/16/17 15:16 131 H 02/16/17 15:03 103 H 02/16/17 14:00 104 H 18 97 02/16/17 13:35 114 H 18 109/57 100 Intake and Output 02/16/17 02/17/17 02/17/17 22:59 06:59 14:59 Intake Total 220 Output Total 1050 Balance 220 -1050 Intake: Intake, IV Titration 100 Amount Sodium Chloride 0.9% 1, 100 000 ml @ 100 mls/hr IV . Q10H STA Rx#:[id number] Oral 120 Output: Urine 1050 Other: # Voids 1 Weight 86.9 kg The patient appeared well nourished and normally developed. Vital signs as documented. Head exam is unremarkable. No scleral icterus or corneal arcus noted. Neck is without jugular venous distension, thyromegaly, or carotid bruits. Carotid upstrokes are brisk bilaterally. Lungs are diminished bilaterally along with that there is diffuse expiratory wheezes throughout the lung espinosa and there is prolongation of the expiratory phase of breathing.. Cardiac exam reveals the PMI to be normally sized and situated. Rhythm is regular. First and second heart sounds normal. No murmurs, rubs or gallops. Abdominal exam reveals normal bowel sounds, no masses, no organomegaly and no aortic enlargement. Extremities are nonedematous and both femoral and pedal pulses are normal. Results - Laboratory Findings CBC and BMP: 02/17/17 06:14 02/17/17 06:14 PT/INR, D-dimer PT 10.9 sec (9.0-12.0) 02/16/17 10:45 INR 1.1 (<1.1) 02/16/17 10:45 Abnormal lab findings: Abnormal Labs 02/16/17 02/16/17 02/16/17 10:45 10:45 10:45 WBC RBC 5.59 H Hct 49.5 H Neutrophils # Lymphocytes # 0.6 L Potassium 3.4 L Chloride Carbon Dioxide 20 L Glucose 107 H POC Glucose (mg/dL) Hemoglobin A1c Plasma Lactic Acid Gabriel 4.3 H* Urine Glucose (UA) 02/16/17 02/16/17 02/16/17 10:45 21:50 23:52 WBC RBC Hct Neutrophils # Lymphocytes # Potassium Chloride Carbon Dioxide Glucose POC Glucose (mg/dL) Hemoglobin A1c 6.4 H Plasma Lactic Acid Gabriel 3.9 H* Urine Glucose (UA) 4+ H 02/17/17 02/17/17 02/17/17 06:11 06:14 06:14 WBC 16.7 H RBC Hct Neutrophils # 15.6 H Lymphocytes # 0.7 L Potassium Chloride 111 H Carbon Dioxide 21 L Glucose 145 H POC Glucose (mg/dL) 151 H Hemoglobin A1c Plasma Lactic Acid Gabriel Urine Glucose (UA) 02/17/17 11:48 WBC RBC Hct Neutrophils # Lymphocytes # Potassium Chloride Carbon Dioxide Glucose POC Glucose (mg/dL) 291 H Hemoglobin A1c Plasma Lactic Acid Gabriel Urine Glucose (UA) - Diagnostic Findings Chest x-ray: image reviewed Assessment and Plan Plan: Assessment 1 acute COPD exacerbation with secondary shortness of breath. Rule out underlying tracheal bronchitis. Chest x-ray history of any acute pulmonary infiltrates or pneumonia 2 lactic acidosis improving 3 leukocytosis secondary to above 4 tachycardia, improving and the patient had normal sinus rhythm/sinus tachycardia and the cardiac enzymes were negative and the BNP level was nonelevated 5 nonspecific chest pain, unlikely to be related to angina 6 smoker 7 chronic back pain 8 chronic back pain 9 psoriasis 10 GERD Plan Agree on the current treatment. Lactic acid level is improving. We'll monitor white count and continue antibiotics. Continue steroids. Continue bronchodilators. Cardiology evaluation. Smoking cessation counseling. Outpatient pulmonary function test. We'll continue to follow.
[2017-02-17] MEDS ORDERED: INSULIN REGULAR 100 UNIT in SODIUM CHLORIDE 0.9% 100 ML IV SCH (13:00)
[2017-02-17] MEDS: HYDROcodone/APAP 5-325MG 1 EACH TAB PO PRN ×2 (13:16→21:18)
[2017-02-17 13:38] LABS: Glucose,Whole Blood 261 mg/dL (75-99)
[2017-02-17 14:02] LABS: Glucose,Whole Blood 261 mg/dL (75-99)
[2017-02-17 14:22] LABS: Glucose,Whole Blood 226 mg/dL (75-99)
[2017-02-17 16:21] LABS: Glucose,Whole Blood 66 mg/dL (75-99)
[2017-02-17 16:37] LABS: Glucose,Whole Blood 75 mg/dL (75-99)
[2017-02-17 17:36] LABS: Glucose,Whole Blood 95 mg/dL (75-99)
--- NOTE | 2017-02-17 18:16 | P.PN ---
Subjective Date of service 02/17/2017. Progress note being dictated for Dr. Bowman. Interval history: This a 61-year-old female admitted with acute bronchial asthma , COPD exacerbation, increased lactic acidosis possibly secondary sepsis and multiple other medical issues. Maintained on nebulized bronchodilators, broad- spectrum IV antibiotics of Rocephin and Zithromax, steroids with breathing improving. Objective - Vital Signs Vital signs: Vital Signs Temp 99.0 F 02/17/17 16:00 Pulse 116 H 02/17/17 16:00 Resp 16 02/17/17 16:00 BP 135/72 02/17/17 16:00 Pulse Ox 96 02/17/17 16:00 Intake & Output 02/16/17 02/17/17 02/17/17 18:59 06:59 18:59 Intake Total 220 139.664 Output Total 1050 300 Balance 220 -1050 -160.336 Weight 86.183 kg 86.9 kg Intake: Intake, IV Titration 100 21.664 Amount Insulin Regular 100 unit 21.664 In Sodium Chloride 0.9% 100 ml @ Titrate IV .Q0M LONI Rx#:[id number] Sodium Chloride 0.9% 1, 100 000 ml @ 100 mls/hr IV . Q10H STA Rx#:[id number] Oral 120 118 Output: Urine 1050 300 Other: # Voids 1 - Exam PHYSICAL EXAM: VITAL SIGNS: As above GENERAL: [Sitting up at side of bed, no acute distress] HEENT: [Pupils equal conjunctiva normal.] NECK: [Supple, no JVD] RESPIRATORY EFFORT:[Mildly increased] LUNGS: [Diminished with Faint expiratory wheezing bilaterally] CARDIOVASCULAR[regular S1 and S2, no murmurs rubs or gallops, no edema] GI: [Abdomen soft, nontender, positive bowel sounds.] PSYCH: [Alert and oriented -3, mood and affect normal.] NEURO: No focal deficits Microbiology 02/16/17 14:24 Blood Blood Culture - Preliminary No Growth after 24 hours 02/16/17 10:45 Blood Blood Culture - Preliminary No Growth after 24 hours 02/16/17 21:50 Urine,Clean Catch Urine Culture - Preliminary - Labs CBC & Chem 7: 02/17/17 06:14 02/17/17 06:14 Labs: Abnormal Lab Results - Last 24 Hours (Table) 02/16/17 02/16/1717 Range/Units 10:45 21:50 23:52 WBC (3.8-10.6) k/uL Neutrophils # (1.3-7.7) k/uL Lymphocytes # (1.0-4.8) k/uL Chloride (98-107) mmol/L Carbon Dioxide (22-30) mmol/L Glucose (74-99) mg/dL POC Glucose (mg/dL) (75-99) mg/dL Hemoglobin A1c 6.4 H (4.2-6.1) % Plasma Lactic Acid Gabriel 3.9 H* (0.7-2.0) mmol/L TSH (0.465-4.680) mIU/L Urine Glucose (UA) 4+ H (Negative) 02/17/17 02/17/17 02/17/17 Range/Units 06:11 06:14 06:14 WBC 16.7 H (3.8-10.6) k/uL Neutrophils # 15.6 H (1.3-7.7) k/uL Lymphocytes # 0.7 L (1.0-4.8) k/uL Chloride 111 H (98-107) mmol/L Carbon Dioxide 21 L (22-30) mmol/L Glucose 145 H (74-99) mg/dL POC Glucose (mg/dL) 151 H (75-99) mg/dL Hemoglobin A1c (4.2-6.1) % Plasma Lactic Acid Gabriel (0.7-2.0) mmol/L TSH (0.465-4.680) mIU/L Urine Glucose (UA) (Negative) 02/17/17 02/17/17 02/17/17 Range/Units 06:14 11:48 13:17 WBC (3.8-10.6) k/uL Neutrophils # (1.3-7.7) k/uL Lymphocytes # (1.0-4.8) k/uL Chloride (98-107) mmol/L Carbon Dioxide (22-30) mmol/L Glucose (74-99) mg/dL POC Glucose (mg/dL) 291 H 261 H (75-99) mg/dL Hemoglobin A1c (4.2-6.1) % Plasma Lactic Acid Gabriel (0.7-2.0) mmol/L TSH 0.385 L (0.465-4.680) mIU/L Urine Glucose (UA) (Negative) 02/17/17 02/17/17 02/17/17 Range/Units 13:50 14:19 16:19 WBC (3.8-10.6) k/uL Neutrophils # (1.3-7.7) k/uL Lymphocytes # (1.0-4.8) k/uL Chloride (98-107) mmol/L Carbon Dioxide (22-30) mmol/L Glucose (74-99) mg/dL POC Glucose (mg/dL) 261 H 226 H 66 L (75-99) mg/dL Hemoglobin A1c (4.2-6.1) % Plasma Lactic Acid Gabriel (0.7-2.0) mmol/L TSH (0.465-4.680) mIU/L Urine Glucose (UA) (Negative) Microbiology - Last 24 Hours (Table) 02/16/17 14:24 Blood Culture - Preliminary Blood No Growth after 24 hours 02/16/17 10:45 Blood Culture - Preliminary Blood No Growth after 24 hours 02/16/17 21:50 Urine Culture - Preliminary Urine,Clean Catch Assessment and Plan Plan: 1. Acute bronchial asthma, acute exacerbation of COPD with bronchopneumonia with possible sepsis present on admission. 2. [Hypokalemia, improved]. 3. [Increased lactic acidosis possibly secondary to sepsis, improving]. 4. Leukocytosis secondary to the above 5. [Hyperlipidemia]. 6. [Degenerative joint disease, Chronic back pain, history of cervical fusion]. 7. [Continued ongoing nicotine dependence]. 8. Tachycardia, improving 9. Gastroesophageal reflux disease] Plan: Continue on current medication regime, nebulized bronchodilators, systemic steroids, antibiotics, monitoring and symptomatic treatment. Evaluated by cardiology with recommendations noted. Follow cultures closely .Smoking cessation readdressed. Further recommendations to follow. The impression and plan of care has been dictated as directed. : I performed a H&P examination of this patient and discussed the same with the dictator. I agree with the dictator's note. Any additional findings/opinions/ etc. will be noted.
[2017-02-17 18:39] LABS: Glucose,Whole Blood 155 mg/dL (75-99)
[2017-02-17 19:39] LABS: Glucose,Whole Blood 198 mg/dL (75-99)
[2017-02-17] MEDS: NICOTINE 14MG/24HR PATCH TRANSDERM SCH (21:17)
[2017-02-17] MEDS: ATORVASTATIN 20 MG TAB PO SCH (21:18)
[2017-02-17 21:33] LABS: Glucose,Whole Blood 268 mg/dL (75-99)
--- NOTE | 2017-02-17 22:01 | PN ---
DATE OF SERVICE: 02/17/2017 This 61-year-old woman who was admitted with COPD, bronchial asthma acute exacerbation, also possible bronchopneumonia, sepsis, present on admission. I have seen and evaluated the patient with the nurse practitioner. Please refer to the nurse practitioner's notes and impressions documented as scribe for further information. The patient is also seen by Cardiology and Pulmonology. The preliminary echo showed normal LV function. Further recommendations to follow.
[2017-02-17 23:29] LABS: Glucose,Whole Blood 208 mg/dL (75-99)
[2017-02-18 01:39] LABS: Glucose,Whole Blood 141 mg/dL (75-99)
[2017-02-18 03:40] LABS: Glucose,Whole Blood 116 mg/dL (75-99)
[2017-02-18 05:56] LABS: Glucose,Whole Blood 151 mg/dL (75-99)
[2017-02-18] MEDS: SODIUM CHLORIDE 0.9% 1,000 ML IV SCH ×3 (06:31→23:15)
[2017-02-18] MEDS: PANTOPRAZOLE 40 MG TABLET PO SCH (06:32)
[2017-02-18] MEDS: methylPREDNISolone SOD SUCCI 125 MG/2 ML VIAL IV SCH ×2 (06:32→11:19)
[2017-02-18 06:52] LABS: Basophils % (A) 0 %; CH 28.6; CHCM 32.7; Eosinophils % (A) 0 %; HCT 35.3 % (34.0-46.0); HDW 2.75; HGB 11.5 gm/dL (11.4-16.0); Luc % (Auto) 1; Lymphocytes # (A) 1.3 k/uL (1.0-4.8); Lymphocytes % (A) 11 %; MCH 28.6 pg (25.0-35.0); MCHC 32.6 g/dL (31.0-37.0); MCV 87.9 fL (80.0-100.0); Mean Platelet Volume 7.6; Monocytes # (A) 0.5 k/uL (0-1.0); Monocytes % (A) 4 %; Neutrophils # (A) 10.1 k/uL (1.3-7.7); Neutrophils % (A) 85 %; RBC 4.02 m/uL (3.80-5.40); RDW 13.8 % (11.5-15.5)
[2017-02-18 07:00] LABS: Anion Gap 8 mmol/L; Blood Urea Nitrogen 10 mg/dL (7-17); Carbon Dioxide 20 mmol/L (22-30); Chloride 113 mmol/L (98-107); Glucose 138 mg/dL (74-99); Non-African American GFR(MDRD) >60 (>60 ml/min/1.73 sqM); Potassium 4.3 mmol/L (3.5-5.1); Sodium 141 mmol/L (137-145)
[2017-02-18 07:35] LABS: Glucose,Whole Blood 153 mg/dL (75-99)
[2017-02-18] MEDS: INSULIN LISPRO (humaLOG) 300 UNIT/3 ML VIAL SQ SCH ×4 (07:42→21:38)
[2017-02-18] MEDS: ASPIRIN 325 MG TAB PO SCH (07:48)
[2017-02-18] MEDS: CYCLOBENZAPRINE 10 MG TAB PO SCH ×3 (07:48→23:15)
[2017-02-18] MEDS: ENOXAPARIN 40 MG/0.4 ML SYRINGE SQ SCH (07:48)
[2017-02-18] MEDS: HYDROcodone/APAP 5-325MG 1 EACH TAB PO PRN ×3 (07:52→20:39)
--- NOTE | 2017-02-18 08:12 | ECHOF ---
Referral Reason:tachycardia MEASUREMENTS -------- HEIGHT: 162.6 cm WEIGHT: 86.6 kg BP: 106/64 RVIDd: 2.2 cm (< 3.3) IVSd: 1.1 cm (0.6 - 1.1) LVIDd: 4.1 cm (3.9 - 5.3) LVPWd: 1.1 cm (0.6 - 1.1) IVSs: 1.7 cm LVIDs: 3.0 cm LVPWs: 0.9 cm LA Diam: 3.4 cm (2.7 - 3.8) LAESV Index (A-L): 26.23 ml/m Ao Diam: 3.2 cm (2.0 - 3.7) AV Cusp: 1.8 cm (1.5 - 2.6) LA Diam: 3.5 cm (2.7 - 3.8) MV EXCURSION: 21.518 mm (> 18.000) MV EF SLOPE: 154 mm/s (70 - 150) EPSS: 0.2 cm MV E David: 1.33 m/s MV DecT: 174 ms MV A David: 0.56 m/s MV E/A Ratio: 2.36 RAP: 5.00 mmHg RVSP: 31.78 mmHg FINDINGS -------- Resting tachycardia (HR>100bpm). This was a technically adequate study. There is mild concentric left ventricular hypertrophy. Overall left ventricular systolic function is low-normal with, an EF between 50 - 55 %. The right ventricle is normal in size. Normal LA size by volume 22+/-6 ml/m2. The right atrial size is normal. There is mild aortic valve sclerosis. There is no evidence of aortic regurgitation. Mild mitral annular calcification present. Mild mitral regurgitation is present. Mild tricuspid regurgitation present. There is no evidence of pulmonary hypertension. The right ventricular systolic pressure, as measured by Doppler, is 31.78mmHg. There is no pulmonic regurgitation present. The aortic root size is normal. There is no pericardial effusion. CONCLUSIONS -------- 1. There is mild concentric left ventricular hypertrophy. 2. There is no pulmonic regurgitation present. 3. Overall left ventricular systolic function is low-normal with, an EF between 50 - 55 %. 4. Normal LA size by volume 22+/-6 ml/m2. 5. There is mild aortic valve sclerosis. 6. Mild mitral annular calcification present. 7. Mild mitral regurgitation is present. 8. Mild tricuspid regurgitation present. 9. There is no evidence of pulmonary hypertension. 10. The right ventricular systolic pressure, as measured by Doppler, is 31.78mmHg. RESEARCH SCHOLAR: Shawna Marti RDCS
[2017-02-18] MEDS: SYMBICORT 160-4.5 MCG INHALER INHALATION SCH ×2 (08:43→20:39)
[2017-02-18] MEDS: IPRATROPIUM-ALBUTEROL 3 ML NEB INHALATION SCH ×4 (08:43→20:39)
[2017-02-18 09:20] LABS: Glucose,Whole Blood 170 mg/dL (75-99)
[2017-02-18] MEDS: AZITHROMYCIN 500 MG in SODIUM CHLORIDE 0.9% 250 ML IVPB SCH (09:36)
[2017-02-18 11:04] LABS: Glucose,Whole Blood 134 mg/dL (75-99)
[2017-02-18 12:09] LABS: Glucose,Whole Blood 125 mg/dL (75-99)
--- NOTE | 2017-02-18 13:03 | P.PN ---
Subjective Principal diagnosis: Hypertension This is a 61-year-old female with history of hypertension, hyperlipidemia, asthma, GERD, nicotine dependence, she states that she smokes one pack of cigarettes per day. She presents to the hospital with symptoms of shortness of breath with associated heart racing. According to the patient she had been getting mildly more progressively short of breath over the past couple of days, and ultimately states she could hardly breathe at all and felt her heart racing. For this reason she called EMS. Blood pressure on EMS arrival 146/98 with a heart rate of 140. EKG on arrival showed a sinus tachycardia. A cardiogram with Doppler study was performed which revealed an ejection fraction of 50-55%. Receiving treatment for acute bronchial asthma exacerbation as well as exacerbation of COPD. Objective - Vital Signs Vital signs: Vital Signs Temp 97.9 F 02/18/17 08:00 Pulse 96 02/18/17 12:20 Resp 16 02/18/17 11:35 BP 135/63 02/18/17 08:00 Pulse Ox 95 02/18/17 08:00 Intake & Output 02/17/17 02/18/17 02/18/17 18:59 06:59 18:59 Intake Total 407.918 4068.233 206.135 Output Total 300 200 Balance -179.906 9727.233 206.135 Weight 87.8 kg Intake: Intake, IV Titration 21.790 1025.233 6.135 Amount Insulin Regular 100 unit 21.790 25.233 6.135 In Sodium Chloride 0.9% 100 ml @ Titrate IV .Q0M LONI Rx#:[id number] Sodium Chloride 0.9% 1, 1000 000 ml @ 100 mls/hr IV . Q10H LONI Rx#:[id number] Oral 118 180 200 Output: Urine 300 200 Other: Voiding Method Toilet - Exam PHYSICAL EXAMINATION: HEENT: Head is atraumatic, normocephalic. Pupils equal, round. Neck is supple. There is no elevated jugular venous pressure. HEART EXAMINATION: Heart S1, S2 normal. No murmur or gallop heard. CHEST EXAMINATION: Reveal decreased air exchange with scattered coarse wheezing throughout. ABDOMEN: Soft, nontender. Bowel sounds are heard. No organomegaly noted. EXTREMITIES: 2+ peripheral pulses with no evidence of peripheral edema and no calf tenderness noted. NEUROLOGIC patient is awake, alert and oriented -3. - Labs CBC & Chem 7: 02/18/17 06:11 02/18/17 06:11 Labs: Abnormal Lab Results - Last 24 Hours (Table) 02/17/17 02/17/17 02/17/17 Range/Units 06:14 13:17 13:50 WBC (3.8-10.6) k/uL Neutrophils # (1.3-7.7) k/uL Chloride (98-107) mmol/L Carbon Dioxide (22-30) mmol/L Glucose (74-99) mg/dL POC Glucose (mg/dL) 261 H 261 H (75-99) mg/dL TSH 0.385 L (0.465-4.680) mIU/L 02/17/17 02/17/17 02/17/17 Range/Units 14:19 16:19 18:38 WBC (3.8-10.6) k/uL Neutrophils # (1.3-7.7) k/uL Chloride (98-107) mmol/L Carbon Dioxide (22-30) mmol/L Glucose (74-99) mg/dL POC Glucose (mg/dL) 226 H 66 L 155 H (75-99) mg/dL TSH (0.465-4.680) mIU/L 02/17/17 02/17/17 02/17/17 Range/Units 19:37 21:32 23:28 WBC (3.8-10.6) k/uL Neutrophils # (1.3-7.7) k/uL Chloride (98-107) mmol/L Carbon Dioxide (22-30) mmol/L Glucose (74-99) mg/dL POC Glucose (mg/dL) 198 H 268 H 208 H (75-99) mg/dL TSH (0.465-4.680) mIU/L 02/18/17 02/18/17 02/18/17 Range/Units 01:37 03:38 05:54 WBC (3.8-10.6) k/uL Neutrophils # (1.3-7.7) k/uL Chloride (98-107) mmol/L Carbon Dioxide (22-30) mmol/L Glucose (74-99) mg/dL POC Glucose (mg/dL) 141 H 116 H 151 H (75-99) mg/dL TSH (0.465-4.680) mIU/L 02/18/17 02/18/17 02/18/17 Range/Units 06:11 06:11 07:34 WBC 12.0 H (3.8-10.6) k/uL Neutrophils # 10.1 H (1.3-7.7) k/uL Chloride 113 H (98-107) mmol/L Carbon Dioxide 20 L (22-30) mmol/L Glucose 138 H (74-99) mg/dL POC Glucose (mg/dL) 153 H (75-99) mg/dL TSH (0.465-4.680) mIU/L 02/18/17 02/18/17 02/18/17 Range/Units 09:19 11:02 12:04 WBC (3.8-10.6) k/uL Neutrophils # (1.3-7.7) k/uL Chloride (98-107) mmol/L Carbon Dioxide (22-30) mmol/L Glucose (74-99) mg/dL POC Glucose (mg/dL) 170 H 134 H 125 H (75-99) mg/dL TSH (0.465-4.680) mIU/L Microbiology - Last 24 Hours (Table) 02/16/17 10:45 Blood Culture - Preliminary Blood No Growth after 48 hours 02/16/17 21:50 Urine Culture - Final Urine,Clean Catch 02/16/17 14:24 Blood Culture - Preliminary Blood No Growth after 24 hours Assessment and Plan Plan: Assessment and plan #1Acute bronchitis,/asthma, possible pneumonia. #2 sinus tachycardia, echocardiogram with Doppler study reveals normal left ventricular systolic function. TSH 0.38. #3 hypertension #4 hyperlipidemia #5 nicotine dependence #6 psoriasis Plan Patient currently receiving treatment for exacerbation of asthma and COPD, acute tracheobronchitis. Heart rate in the 90s today. Mild hyperthyroidism noted. From cardiology's perspective, we'll make her a follow-up appointment to see Dr. López in the office in 4 weeks. Once the lungs have improved, outpatient cardiac testing will be performed. DNP note has been reviewed, I agree with a documented findings and plan of care. Patient was seen and examined.
[2017-02-18 13:27] LABS: Glucose,Whole Blood 139 mg/dL (75-99)
[2017-02-18 14:15] LABS: Glucose,Whole Blood 188 mg/dL (75-99)
[2017-02-18 16:06] LABS: Glucose,Whole Blood 179 mg/dL (75-99)
--- NOTE | 2017-02-18 17:08 | P.PN ---
Subjective Principal diagnosis: Acute exacerbation of chronic obstructive pulmonary disease. 61-year-old female patient, a chronic smoker and smokes approximately 1 pack of cigarettes a day, came into the hospital yesterday because of progressive worsening shortness of breath over a few days duration in addition to increased chest discomfort, numbness in upper 70s bilaterally, nausea, and generalized weakness. She also noted that her heart was racing. The time of the arrival to the hospital, the patient was found to have a slightly elevated blood pressure with a BP of 146/98 with a heart rate of 140. She was placed on oxygen at 2 L/m nasal cannula. She was febrile with temperature of 11.5. Her cardiac enzymes have been negative and the troponin has been negative 3 and the BNP level was 171. The patient was in sinus tachycardia. She was bronchospastic and wheezy. Chest x-ray showed some increased vascular marking without any airspace disease or infiltrates noted. Noted the patient had a component of lactic acidosis the time of admission which ultimately improved lactic acid level is down to 1.7. She was diagnosed having an acute COPD exacerbation as the patient was found to be acutely bronchospastic and wheezy. The patient doesn't utilize any form of respiratory medications at home. The patient does not utilize maintenance inhalers and she occasionally uses Ventolin when necessary. No swelling in lower extremities. No DVT. No pulmonate embolism. She is already feeling better for now. The patient is seen again today 02/18/2017 in follow-up on the regular medical floor. She is awake and alert in no acute distress. She is breathing easier today as compared to yesterday. She's been treated for an acute COPD exacerbation. He is maintaining good O2 saturations in the mid 90s on room air. She's been afebrile. Blood and urine cultures revealed no growth. Objective - Vital Signs Vital signs: Vital Signs Temp 98.4 F 02/18/17 15:00 Pulse 96 02/18/17 16:52 Resp 16 02/18/17 15:40 BP 145/91 02/18/17 15:00 Pulse Ox 95 02/18/17 15:00 Intake & Output 02/17/17 02/18/17 02/18/17 18:59 06:59 18:59 Intake Total 484.940 0251.233 206.135 Output Total 300 200 Balance -575.135 7774.233 206.135 Weight 87.8 kg Intake: Intake, IV Titration 21.790 1025.233 6.135 Amount Insulin Regular 100 unit 21.790 25.233 6.135 In Sodium Chloride 0.9% 100 ml @ Titrate IV .Q0M LONI Rx#:[id number] Sodium Chloride 0.9% 1, 1000 000 ml @ 100 mls/hr IV . Q10H LONI Rx#:[id number] Oral 118 180 200 Output: Urine 300 200 Other: Voiding Method Toilet # Voids 1 - Exam The patient appeared well nourished and normally developed. Vital signs as documented. Head exam is unremarkable. No scleral icterus or corneal arcus noted. Neck is without jugular venous distension, thyromegaly, or carotid bruits. Carotid upstrokes are brisk bilaterally. Lungs are diminished bilaterally along with that there is diffuse expiratory wheezes throughout the lung espinosa and there is prolongation of the expiratory phase of breathing.. Cardiac exam reveals the PMI to be normally sized and situated. Rhythm is regular. First and second heart sounds normal. No murmurs, rubs or gallops. Abdominal exam reveals normal bowel sounds, no masses, no organomegaly and no aortic enlargement. Extremities are nonedematous and both femoral and pedal pulses are normal. - Labs CBC & Chem 7: 02/18/17 06:11 02/18/17 06:11 Labs: Abnormal Lab Results - Last 24 Hours (Table) 02/17/17 02/17/17 02/17/17 Range/Units 18:38 19:37 21:32 WBC (3.8-10.6) k/uL Neutrophils # (1.3-7.7) k/uL Chloride (98-107) mmol/L Carbon Dioxide (22-30) mmol/L Glucose (74-99) mg/dL POC Glucose (mg/dL) 155 H 198 H 268 H (75-99) mg/dL 02/17/17 02/18/17 02/18/17 Range/Units 23:28 01:37 03:38 WBC (3.8-10.6) k/uL Neutrophils # (1.3-7.7) k/uL Chloride (98-107) mmol/L Carbon Dioxide (22-30) mmol/L Glucose (74-99) mg/dL POC Glucose (mg/dL) 208 H 141 H 116 H (75-99) mg/dL 02/18/17 02/18/17 02/18/17 Range/Units 05:54 06:11 06:11 WBC 12.0 H (3.8-10.6) k/uL Neutrophils # 10.1 H (1.3-7.7) k/uL Chloride 113 H (98-107) mmol/L Carbon Dioxide 20 L (22-30) mmol/L Glucose 138 H (74-99) mg/dL POC Glucose (mg/dL) 151 H (75-99) mg/dL 02/18/17 02/18/17 02/18/17 Range/Units 07:34 09:19 11:02 WBC (3.8-10.6) k/uL Neutrophils # (1.3-7.7) k/uL Chloride (98-107) mmol/L Carbon Dioxide (22-30) mmol/L Glucose (74-99) mg/dL POC Glucose (mg/dL) 153 H 170 H 134 H (75-99) mg/dL 02/18/17 02/18/17 02/18/17 Range/Units 12:04 13:06 14:11 WBC (3.8-10.6) k/uL Neutrophils # (1.3-7.7) k/uL Chloride (98-107) mmol/L Carbon Dioxide (22-30) mmol/L Glucose (74-99) mg/dL POC Glucose (mg/dL) 125 H 139 H 188 H (75-99) mg/dL 02/18/17 Range/Units 16:05 WBC (3.8-10.6) k/uL Neutrophils # (1.3-7.7) k/uL Chloride (98-107) mmol/L Carbon Dioxide (22-30) mmol/L Glucose (74-99) mg/dL POC Glucose (mg/dL) 179 H (75-99) mg/dL Microbiology - Last 24 Hours (Table) 02/16/17 14:24 Blood Culture - Preliminary Blood No Growth after 48 hours 02/16/17 10:45 Blood Culture - Preliminary Blood No Growth after 48 hours 02/16/17 21:50 Urine Culture - Final Urine,Clean Catch Assessment and Plan Plan: Assessment 1 acute COPD exacerbation with secondary shortness of breath. Rule out underlying tracheal bronchitis. Chest x-ray history of any acute pulmonary infiltrates or pneumonia 2 lactic acidosis improving 3 leukocytosis secondary to above 4 tachycardia, improving and the patient had normal sinus rhythm/sinus tachycardia and the cardiac enzymes were negative and the BNP level was nonelevated 5 nonspecific chest pain, unlikely to be related to angina 6 smoker 7 chronic back pain 8 chronic back pain 9 psoriasis 10 GERD Plan The patient was seen and evaluated by Dr. Glover. She is improved today as compared to yesterday as far as her COPD is concerned. She is again educated regarding the importance of complete smoking cessation. We'll continue with her current medications. We'll continue to follow and make further recommendations based on her clinical status.
[2017-02-18 17:37] LABS: Glucose,Whole Blood 197 mg/dL (75-99)
--- NOTE | 2017-02-18 18:37 | P.PN ---
Subjective Date of service 02/18/2017. Progress note being dictated for . Interval history: This a 61-year-old female admitted with acute bronchial asthma , COPD exacerbation, increased lactic acidosis possibly secondary sepsis and multiple other medical issues. Maintained on nebulized bronchodilators, broad- spectrum IV antibiotics of Rocephin and Zithromax, steroids with breathing better today. Afebrile. Preliminary blood cultures and urine cultures negative. Objective - Vital Signs Vital signs: Vital Signs Temp 98.4 F 02/18/17 15:00 Pulse 96 02/18/17 17:05 Resp 16 02/18/17 15:40 BP 145/91 02/18/17 15:00 Pulse Ox 95 02/18/17 15:00 Intake & Output 02/17/17 02/18/17 02/18/17 18:59 06:59 18:59 Intake Total 883.177 3828.233 206.135 Output Total 300 200 Balance -615.098 2501.233 206.135 Weight 87.8 kg Intake: Intake, IV Titration 21.790 1025.233 6.135 Amount Insulin Regular 100 unit 21.790 25.233 6.135 In Sodium Chloride 0.9% 100 ml @ Titrate IV .Q0M LONI Rx#:[id number] Sodium Chloride 0.9% 1, 1000 000 ml @ 100 mls/hr IV . Q10H LONI Rx#:[id number] Oral 118 180 200 Output: Urine 300 200 Other: Voiding Method Toilet # Voids 1 - Exam PHYSICAL EXAM: VITAL SIGNS: As above GENERAL: [Sitting up at side of bed, no acute distress] HEENT: [Pupils equal conjunctiva normal.] NECK: [Supple, no JVD] RESPIRATORY EFFORT:[Mildly increased] LUNGS: [Diminished with occasional fine expiratory wheezing bilaterally, greater on the right] CARDIOVASCULAR[regular S1 and S2, no murmurs rubs or gallops, no edema] GI: [Abdomen soft, nontender, positive bowel sounds.] PSYCH: [Alert and oriented -3, mood and affect normal.] NEURO: No focal deficits 0 Microbiology 02/16/17 14:24 Blood Blood Culture - Preliminary No Growth after 48 hours 02/16/17 10:45 Blood Blood Culture - Preliminary No Growth after 48 hours 02/16/17 21:50 Urine,Clean Catch Urine Culture - Final - Labs CBC & Chem 7: 02/18/17 06:11 02/18/17 06:11 Labs: Abnormal Lab Results - Last 24 Hours (Table) 02/17/17 02/17/17 02/17/17 Range/Units 18:38 19:37 21:32 WBC (3.8-10.6) k/uL Neutrophils # (1.3-7.7) k/uL Chloride (98-107) mmol/L Carbon Dioxide (22-30) mmol/L Glucose (74-99) mg/dL POC Glucose (mg/dL) 155 H 198 H 268 H (75-99) mg/dL 02/17/17 02/18/17 02/18/17 Range/Units 23:28 01:37 03:38 WBC (3.8-10.6) k/uL Neutrophils # (1.3-7.7) k/uL Chloride (98-107) mmol/L Carbon Dioxide (22-30) mmol/L Glucose (74-99) mg/dL POC Glucose (mg/dL) 208 H 141 H 116 H (75-99) mg/dL 02/18/17 02/18/17 02/18/17 Range/Units 05:54 06:11 06:11 WBC 12.0 H (3.8-10.6) k/uL Neutrophils # 10.1 H (1.3-7.7) k/uL Chloride 113 H (98-107) mmol/L Carbon Dioxide 20 L (22-30) mmol/L Glucose 138 H (74-99) mg/dL POC Glucose (mg/dL) 151 H (75-99) mg/dL 02/18/17 02/18/17 02/18/17 Range/Units 07:34 09:19 11:02 WBC (3.8-10.6) k/uL Neutrophils # (1.3-7.7) k/uL Chloride (98-107) mmol/L Carbon Dioxide (22-30) mmol/L Glucose (74-99) mg/dL POC Glucose (mg/dL) 153 H 170 H 134 H (75-99) mg/dL 02/18/17 02/18/17 02/18/17 Range/Units 12:04 13:06 14:11 WBC (3.8-10.6) k/uL Neutrophils # (1.3-7.7) k/uL Chloride (98-107) mmol/L Carbon Dioxide (22-30) mmol/L Glucose (74-99) mg/dL POC Glucose (mg/dL) 125 H 139 H 188 H (75-99) mg/dL 02/18/17 02/18/17 Range/Units 16:05 17:34 WBC (3.8-10.6) k/uL Neutrophils # (1.3-7.7) k/uL Chloride (98-107) mmol/L Carbon Dioxide (22-30) mmol/L Glucose (74-99) mg/dL POC Glucose (mg/dL) 179 H 197 H (75-99) mg/dL Microbiology - Last 24 Hours (Table) 02/16/17 14:24 Blood Culture - Preliminary Blood No Growth after 48 hours 02/16/17 10:45 Blood Culture - Preliminary Blood No Growth after 48 hours 02/16/17 21:50 Urine Culture - Final Urine,Clean Catch Assessment and Plan Plan: 1. Acute bronchial asthma, acute exacerbation of COPD with bronchopneumonia with possible sepsis present on admission. 2. [Hypokalemia, improved]. 3. [Increased lactic acidosis possibly secondary to sepsis, improving]. 4. Leukocytosis secondary to the above 5. [Hyperlipidemia]. 6. [Degenerative joint disease, Chronic back pain, history of cervical fusion]. 7. [Continued ongoing nicotine dependence]. 8. Tachycardia, improving 9. Gastroesophageal reflux disease] Plan: Continue on current medication regime, nebulized bronchodilators, systemic steroids, antibiotics, monitoring and symptomatic treatment. Follow cultures closely .Smoking cessation readdressed. Increase ambulation as tolerated. Discharge planning in progress for tomorrow pending pulmonary clearance. Outpatient cardiac testing recommended per cardiology. Further recommendations to follow. The impression and plan of care has been dictated as directed. : I performed a H&P examination of this patient and discussed the same with the dictator. I agree with the dictator's note. Any additional findings/opinions/ etc. will be noted.
[2017-02-18] MEDS: NICOTINE 14MG/24HR PATCH TRANSDERM SCH (20:30)
[2017-02-18] MEDS: ATORVASTATIN 20 MG TAB PO SCH (20:30)
[2017-02-18 20:45] LABS: Glucose,Whole Blood 191 mg/dL (75-99)
[2017-02-18 23:04] VITALS: BP 147/76
[2017-02-19 07:40] LABS: Glucose,Whole Blood 92 mg/dL (75-99)
[2017-02-19 07:56] VITALS: RESP 16; TEMP 97.7
[2017-02-19] MEDS: IPRATROPIUM-ALBUTEROL 3 ML NEB INHALATION SCH ×2 (08:01→11:19)
[2017-02-19] MEDS: SYMBICORT 160-4.5 MCG INHALER INHALATION SCH (08:01)
[2017-02-19] MEDS: INSULIN LISPRO (humaLOG) 300 UNIT/3 ML VIAL SQ SCH (08:04)
[2017-02-19] MEDS: ENOXAPARIN 40 MG/0.4 ML SYRINGE SQ SCH (08:06)
[2017-02-19] MEDS: CYCLOBENZAPRINE 10 MG TAB PO SCH (08:06)
[2017-02-19] MEDS: ASPIRIN 325 MG TAB PO SCH (08:06)
[2017-02-19] MEDS: PANTOPRAZOLE 40 MG TABLET PO SCH (08:06)
[2017-02-19 08:16] VITALS: PULSE 92
[2017-02-19] MEDS: HYDROcodone/APAP 5-325MG 1 EACH TAB PO PRN (08:18)
[2017-02-19 08:20] LABS: Basophils % (A) 0 %; CH 28.4; CHCM 33.3; Eosinophils % (A) 0 %; HCT 34.8 % (34.0-46.0); HDW 2.81; HGB 11.9 gm/dL (11.4-16.0); Luc # (Auto) 0.09; Luc % (Auto) 1; Lymphocytes # (A) 3.2 k/uL (1.0-4.8); Lymphocytes % (A) 31 %; MCH 29.3 pg (25.0-35.0); MCHC 34.1 g/dL (31.0-37.0); MCV 85.9 fL (80.0-100.0); Mean Platelet Volume 7.3; Monocytes # (A) 0.4 k/uL (0-1.0); Monocytes % (A) 4 %; Neutrophils # (A) 6.7 k/uL (1.3-7.7); Neutrophils % (A) 64 %; RBC 4.05 m/uL (3.80-5.40); RDW 13.8 % (11.5-15.5); WBC 10.5 k/uL (3.8-10.6); WBC (Perox) 9.71
[2017-02-19 08:41] LABS: Anion Gap 8 mmol/L; Blood Urea Nitrogen 10 mg/dL (7-17); Carbon Dioxide 24 mmol/L (22-30); Chloride 111 mmol/L (98-107); Glucose 87 mg/dL (74-99); Non-African American GFR(MDRD) >60 (>60 ml/min/1.73 sqM); Potassium 3.5 mmol/L (3.5-5.1); Sodium 143 mmol/L (137-145)
[2017-02-19] MEDS ORDERED: predniSONE 20 MG TAB PO SCH (09:00)
[2017-02-19] MEDS ORDERED: AZITHROMYCIN 500 MG TAB PO SCH (09:00)
[2017-02-19] MEDS ORDERED: POTASSIUM CHLORIDE ER 20 MEQ TAB.ER PO STA (09:19)
[2017-02-19] MEDS: NICOTINE 14MG/24HR PATCH TRANSDERM SCH (10:19)
[2017-02-19] MEDS: SODIUM CHLORIDE 0.9% 1,000 ML IV SCH (10:20)
--- NOTE | 2017-03-02 23:25 | P.DS ---
Providers Date of admission: 02/16/17 12:46 Expected date of discharge: 02/19/17 Attending physician: Romain Montoya Consults: 02/16/17 18:09 Consult Physician Routine Consulting Provider: Kerwin Glover Consult Reason/Comments: copd? Do you want consulting provider notified?: Yes Dr. López,cardiology Primary care physician: Zacarias Duarte [facility] Hospital Course: My final Diagnoses: 1. Acute bronchial asthma, acute exacerbation of COPD with bronchopneumonia with possible sepsis present on admission. 2. [Hypokalemia]. 3. [Increased lactic acidosis possibly secondary to sepsis, improved]. 4. Leukocytosis secondary to the above,resolved 5. [Hyperlipidemia]. 6. [Degenerative joint disease, Chronic back pain, history of cervical fusion]. 7. [Continued ongoing nicotine dependence]. 8. Tachycardia, resolved,Outpatient cardiac testing recommended per cardiology. 9. Gastroesophageal reflux disease. Hospital course:This is a 61-year-old female admitted with acute bronchial asthma, COPD exacerbation, increased lactic acidosis possibly secondary sepsis and multiple other medical issues. Evaluated by pulmonary and cardiology. Maintained on nebulized bronchodilators, broad-spectrum IV antibiotics of Rocephin and Zithromax, steroids, significant clinical improvement. Hypokalemic , received potassium supplements. Preliminary blood cultures and urine culture negative. TSH 0.38 with repeat thyroid panel recommended outpatient. Cleared by cardiology for discharge. Discharge in progress pending pulmonary clearance. The impression and plan of care has been dictated as directed. : I performed a H&P examination of this patient and discussed the same with the dictator. I agree with the dictator's note. Any additional findings/opinions/ etc. will be noted. Patient Condition at Discharge: Stable Plan - Discharge Summary New Discharge Prescriptions: Albuterol Sulfate [Proair Hfa] 2 puff INHALATION QID #1 inhaler Azithromycin [Zithromax] 500 mg PO DAILY #5 tab Budesonide-Formot 160-4.5 Mcg [Symbicort 160-4.5 Mcg Inhaler] 2 puff INHALATION RT-BID #1 inh Nicotine 14Mg/24Hr Patch [Habitrol] 1 patch TRANSDERM HS #30 patch predniSONE 10 mg PO DIRECTED #30 tab Discharge Medication List Cyclobenzaprine [Flexeril] 10 mg PO TID PRN 11/16/14 [History] HYDROcodone/APAP 5-325MG [[place] 5-325] 1 tab PO Q6H PRN 11/16/14 [History] LORazepam [Ativan] 0.5 mg PO BID PRN 11/16/14 [History] Omeprazole [PriLOSEC] 20 mg PO DAILY 11/16/14 [History] Aspirin 325 mg PO DAILY 02/16/17 [History] Atorvastatin Calcium [Lipitor] 20 mg PO HS 02/16/17 [History] Albuterol Sulfate [Proair Hfa] 2 puff INHALATION QID #1 inhaler 02/19/17 [Rx] Azithromycin [Zithromax] 500 mg PO DAILY #5 tab 02/19/17 [Rx] Budesonide-Formot 160-4.5 Mcg [Symbicort 160-4.5 Mcg Inhaler] 2 puff INHALATION RT-BID #1 inh 02/19/17 [Rx] Nicotine 14Mg/24Hr Patch [Habitrol] 1 patch TRANSDERM HS #30 patch 02/19/17 [Rx] predniSONE 10 mg PO DIRECTED #30 tab 02/19/17 [Rx] Follow up Appointment(s)/Referral(s): Vikas López MD [STAFF PHYSICIAN] - 03/19/17 (Janelle from office will call you with appointment time. ) [facility], [NON-STAFF] - As Needed Zacarias Carmen MD [Primary Care Provider] - 02/23/17 (Per Betsey, office will call you with appointment time. ) Ambulatory/Diagnostic Orders: Complete Blood Count w/diff [LAB.AMB] Time Frame: 3 Days, Location: Determined By Patient Patient Instructions/Handouts: Pneumonia (DC) Activity/Diet/Wound Care/Special Instructions: Low cholesterol diet. No smoking, cessation information provided. Discharge Disposition: HOME WITH HOME HEALTH SERVICES
== END 2017-02-19 12:01 | disposition home health service (06) | DRG 871 ==
LOC: EC 10:28 → 6SEL 12:46 → 4MS4W 02-18 10:49
PROVIDERS: ADMIT Hospitalist; ATTEND Hospitalist
DX: A41.9 Sepsis, unspecified organism (principal); J18.0 Bronchopneumonia, unspecified organism; J44.0 Chronic obstructive pulmonary disease with (acute) lower respiratory infection; J44.1 Chronic obstructive pulmonary disease with (acute) exacerbation; J45.901 Unspecified asthma with (acute) exacerbation; I10 Essential (primary) hypertension; E78.5 Hyperlipidemia, unspecified; E87.6 Hypokalemia; F17.210 Nicotine dependence, cigarettes, uncomplicated; G89.29 Other chronic pain; K21.9 Gastro-esophageal reflux disease without esophagitis; L40.9 Psoriasis, unspecified; R09.02 Hypoxemia; M54.5 Low back pain; R00.0 Tachycardia, unspecified; R07.89 Other chest pain; M19.90 Unspecified osteoarthritis, unspecified site; Z79.82 Long term (current) use of aspirin; Z79.899 Other long term (current) drug therapy; Z98.1 Arthrodesis status; Z87.01 Personal history of pneumonia (recurrent); Z88.5 Allergy status to narcotic agent; Z82.49 Family history of ischemic heart disease and other diseases of the circulatory system
CPT/HCPCS: 36415; 71010; 71020; 80048; 80053; 81003; 82550; 82553; 83036; 83605; 83735; 83880; 84439; 84443; 84484; 85025; 85610; 85730; 87040; 87086; 93005; 93306; 94640; 94644; 94760; 96361; 96365; 99285

== ENCOUNTER → 2017-03-14 | Outpatient (CLI) | payer MEDICARE, OTHER ==
--- NOTE | 2017-03-14 10:45 | XR ---
EXAMINATION TYPE: XR knee complete RT DATE OF EXAM: 03/14/2017 CLINICAL HISTORY: Right knee pain after recent two falls last week. TECHNIQUE: Three views of the right knee are obtained. COMPARISON: None. FINDINGS: There is no acute fracture/dislocation evident in right knee. There is mild to moderate thom int space loss patellofemoral compartment with mild spurring. The overlying soft tissue appears unr emarkable. IMPRESSION: There is no acute fracture or dislocation in the right knee.
--- NOTE | 2017-03-14 10:47 | XR ---
EXAMINATION TYPE: XR lumbar spine 2 or 3V DATE OF EXAM: 03/14/2017 CLINICAL HISTORY: Low back pain after fall injury twice last week. TECHNIQUE: Frontal and lateral images of the lumbar spine are obtained. COMPARISON: Lumbar spine x-ray July 08, 2008 FINDINGS: There are 5 lumbar type vertebral bodies identified. The lumbar spine shows satisfactory alignment without evidence of acute fracture or dislocation. Vertebral body heights remain within nor mal limits. Prominent Schmorl nodes inferior L1 and anterior superior L3 endplates are redemonstrated . There is persistent mild to moderate multilevel disc space narrowing and mild multilevel spurring i s prominent L3-L4 level. Some vascular calyces overlying soft tissue is seen. Facet arthropathy lower lumbar levels is noted. Surgical clips overlie the pelvis. IMPRESSION: No acute fracture or dislocation is seen in the lumbar spine. Multilevel degenerative ch anges as detailed above without significant change from 2008 study.
== END | disposition home or self-care (01) ==
LOC: LABWHC1 09:39
PROVIDERS: ATTEND Family Medicine
DX: M47.26 Other spondylosis with radiculopathy, lumbar region (principal); M25.561 Pain in right knee
CPT/HCPCS: 72100

== ENCOUNTER → 2017-03-31 | Outpatient (CLI) | payer MEDICARE, OTHER ==
--- NOTE | 2017-03-31 16:10 | XR ---
EXAMINATION TYPE: XR knee complete LT, 3 VIEWS DATE OF EXAM ORDERED: 03/31/2017 HISTORY: M79.605 Pain in left leg. COMPARISON: None. FINDINGS: Joint spaces are maintained. There is no chondrocalcinosis. No acute osseous lesion is see n. No knee joint effusion is seen. IMPRESSION: NORMAL LEFT KNEE.
--- NOTE | 2017-03-31 16:11 | XR ---
EXAMINATION TYPE: XR tibia fibula LT, XR ankle complete LT, 6 VIEWS DATE OF EXAM ORDERED: 03/31/2017 HISTORY: M79.605 Pain in left leg. COMPARISON: None. FINDINGS: No long bone abnormality is seen. Osseous structures about the ankle are normal. No fracture, dislocation or ankle joint effusion is se en. IMPRESSION: NORMAL LEFT TIBIA, FIBULA AND ANKLE.
== END | disposition home or self-care (01) ==
LOC: RADXRMAIN 15:34
PROVIDERS: ATTEND Family Medicine
DX: M79.605 Pain in left leg (principal)